=== PATIENT | female | born 1950 | race African-American/Black ===

== ENCOUNTER 2017-01-26 14:47 | Emergency (ER) | payer OTHER ==
[2017-01-26 14:04] LABS: BASOPHILS 0.3 %; BASOPHILS ABSOLUTE 0.03 10/3/uL (0.0-0.16); EOSINOPHILS 0 %; HEMATOCRIT 35.1 % (36.0-48.0); HEMOGLOBIN 11.7 g/dL (12.0-16.0); IMMATURE GRANULOCYTES 0.2 %; IMMATURE GRANULOCYTES ABSOLUTE 0.02 10/3/uL (0.0-0.11); LYMPHOCYTES 14.8 %; LYMPHOCYTES ABSOLUTE 1.33 10/3/uL (0.67-4.30); MEAN CORPUS HGB CONC 33.3 g/dL (32.0-36.0); MEAN CORPUSCULAR VOLUME 93.1 fL (80-100); MEAN PLATELET VOLUME 9.3 fL (9.2-13.0); MONOCYTES 8.1 %; MONOCYTES ABSOLUTE 0.73 10/3/uL (0.21-1.20); NEUTROPHILS 76.6 %; PLATELET COUNT 263 10/3/uL (150-400); RBC DISTRIBUTION WIDTH 13.5 % (12.0-16.0); RED CELL COUNT 3.77 10/6/uL (4.0-5.6)
[2017-01-26 14:05] LABS: MANUAL DIFF NO %
[2017-01-26 14:20] LABS: A/G RATIO 0.9 (0.7-1.9); ALBUMIN 3.5 G/DL (3.5-5.0); ALKALINE PHOSPHATASE 78 U/L (45-117); BUN (BLOOD UREA NITROGEN) 12 MG/DL (6-23); CALCIUM, SERUM 8.7 MG/DL (8.5-10.4); CHLORIDE, SERUM 107 MMOL/L (96-112); CO2 (CARBON DIOXIDE) 30 MMOL/L (24-34); CREATININE 1.07 MG/DL (0.55-1.02); GFR AFRICAN AMERICAN 63 ML/MIN (>=60); GFR NON AFRICAN AMERICAN 54 ML/MIN (>=60); GLOBULIN 3.7 G/DL (2.5-4.1); GLUCOSE, SERUM 97 MG/DL (60-99); POTASSIUM, SERUM 4.4 MMOL/L (3.5-5.3); SGOT(AST) 17 U/L (5-40); SGPT(ALT) 20 U/L (5-65); SODIUM, SERUM 141 MMOL/L (135-148); TOTAL BILIRUBIN 0.9 MG/DL (0-1.2); TOTAL PROTEIN 7.2 G/DL (6.0-8.5)
[~2017-01-26 14:47] MED LIST: ADVAIR250 INH; AMB10 PO; BEN25 PO; CIP5 PO; DIL2TAB PO; EFFEXXR75 PO; ESTRADIOL2 MG OR; FLAG500TAB PO; FLORASTOR250 MG PO; GENTEA1 OP; GENTEA2 OP; GENTEAL 15 ML O15 ML OPH; KLOR-CON M2020 MEQ PO; L20 PO; LEVAQUIN5T PO; LEVOTHYROXIN150 MCG PO; LOP25 PO; LORCET PO; LOTE10 PO; LOTE20 PO; MICRO-K10 MEQ PO; MIRALAXPKT PO; NEUR600 PO; NORV5 PO; PRAVACHOL40 MG PO; PRILO PO; PRILOSEC40 MG PO; SAVELLA50 MG PO; TRAVATAN OPH; X5 PO; ZOCOR20 PO; ZYRTEC ALLGY10 MG PO
== END 2017-01-26 14:59 | disposition home or self-care (01) ==
LOC: ER 14:47
PROVIDERS: Nurse Practitioner Acute Care
DX: B34.9 Viral infection, unspecified (principal); I10 Essential (primary) hypertension; K21.9 Gastro-esophageal reflux disease without esophagitis; F41.9 Anxiety disorder, unspecified; Z88.0 Allergy status to penicillin; Z88.6 Allergy status to analgesic agent; Z88.5 Allergy status to narcotic agent; Z79.899 Other long term (current) drug therapy
CPT/HCPCS: 71020; 80053; 85025; 87070; 87880; 99283